=== PATIENT | female | born 1955 | race Caucasian/White ===

== ENCOUNTER 2023-10-29 11:30 | Emergency (ER) | payer MEDICARE, SELFPAY ==
[2023-10-29 11:32] VITALS: BP 106/85
[2023-10-29 11:56] LABS: % Basophils 0.4 % (0-2); % Eosinophils 0.2 % (0-6); % Immature Granulocytes 0.4 % (0-0.5); % Lymphocytes 13.3 % (20.5-51.1); % Monocytes 8.7 % (1.7-9.3); Absolute Basophils 0.1 10^3/uL (0-0.2); Absolute Immature Granulocytes 0.1 10^3/uL (0-0.05); Absolute Lymphocytes 2.3 10^3/uL (1.2-3.4); Absolute Monocytes 1.5 10^3/uL (0.1-0.6); Absolute Neutrophils 13.5 10^3/uL (1.4-6.5); Hematocrit 39.8 % (37.0-47.0); Hemoglobin 13.5 g/dL (12.0-16.0); Mean Corp Hgb Conc. 33.9 g/dL (33.0-37.0); Mean Corpuscular Hgb 32.1 pg (27.0-31.0); Mean Corpuscular Volume 94.8 fL (81.0-99.0); Mean Platelet Volume 8.7 fL (7.4-10.4); Nucleated Red Blood Cells % 0 %; Platelet Count 304 10^3/uL (130-400); Red Cell Dist. Width 13.7 % (11.5-14.5); White Blood Cell Count 17.5 10^3/uL (4.8-10.8)
[2023-10-29 12:10] LABS: ALT (SGPT) 22 U/L (0-35); AST (SGOT) 23 U/L (14-36); Albumin 4.2 g/dl (3.5-5.0); Alkaline Phosphatase 91 U/L (38-126); Blood Urea Nitrogen 12 mg/dl (7-17); Carbon Dioxide 25 mmol/L (22-30); Chloride 102 mmol/L (98-107); Glucose 104 mg/dl (70-99); Potassium 4.4 mmol/L (3.5-5.1); Sodium 132 mmol/L (135-145); Total Bilirubin 1.3 mg/dl (0.2-1.3); Total Protein 7.1 g/dl (6.3-8.2); eGFR > 60.00
[2023-10-29 12:14] LABS: Lactic Acid 1.1 mmol/L (0.7-2.0)
--- NOTE | 2023-10-29 13:13 | ED.GENMED ---
History of Present Illness
General
Chief Complaint: Skin Problem
Time Seen by Provider: 10/29/23 13:06
Travel History
Have you had any contact with someone who has COVID-19?: No
Do you have any symptoms of coronavirus? Fever > 100 degrees, chills, cough, shortness of breath, sore throat, loss of taste or smell, muscle aches, or headache?: No
History of Present Illness
History of Present Illness:
68-year-old female with history of hypertension and breast cancer in remission presents to the emergency department for evaluation of streaking redness from the right hand up to the right upper arm developing after being scratched by her cat 4 days
ago. The redness developed over the past 24 to 48 hours. She did have tactile fevers and chills yesterday but this resolved today without the use of antipyretics. Reports mild right hand discomfort, denies any axillary discomfort. No chest pain
or shortness of breath.
Past History
Past History
ED Past Medical History: GERD; Negative Asthma, HTN, Hypercholesterolemia or NIDDM
ED Past Surgical History: None
Social History
Tobacco: Former smoker
Alcohol: Daily (Beer)
Personal:
Living: with family
Employment: Employed
Review of Systems
Review of Systems
Allergies reviewed?: Yes
All Other Systems: ROS reviewed and negative except as documented in HPI and ROS
Phy Exam
Physical Exam
Physical Exam:
GEN: Well appearing, NAD, WDWN
HEENT: Oral mucosa moist, no scleral icterus
Cardiac: Regular rate and rhythm, no murmurs
Lung: No respiratory distress, no tachypnea
MSK: No gross deformity or injuries
Skin: Superficial wound to the dorsum of the right hand in the first and second interdigital webspace, there is a desquamated skin lesion adjacent to the scratch with lymphangitis extending into the right upper arm, no palpable axillary adenopathy
Neuro: AO x3, moves all extremities freely
Psych: Calm, cooperative
Course
Orders/Labs/Results
Orders:
Orders
10/29/23 11:43
Complete Blood Count/With Diff Urgent
Comprehensive Metabolic Panel Urgent
Lactic Acid Q4H
Comment: ON ICE, CANCEL 2ND ORDER IF FIRST LACTIC ACID LEVEL <2
Blood Culture Q30M
LUCAS Source: Blood/Venous
Specimen Description:
Comment: FROM 2 SEPARATE SITES
10/29/23 13:18
Ampicillin/Sulbactam 3 G [Unasyn] 3 gm 0.9% Sodium Chloride 100 ml [Nss] 100 ml IV NOW
10/29/23 13:26
Blood Culture Q30M
LUCAS Source: Blood/Venous
Specimen Description:
Comment: FROM 2 SEPARATE SITES
Abnormal Lab Results
10/29/23
11:43
WBC 17.5 H 10^3/uL
(4.8-10.8)
MCH 32.1 H pg
(27.0-31.0)
Abs Immat Gran (auto) 0.1 H 10^3/uL
(0-0.05)
Absolute Neuts (auto) 13.5 H 10^3/uL
(1.4-6.5)
Absolute Monos (auto) 1.5 H 10^3/uL
(0.1-0.6)
Neutrophils % 77.0 H %
(42.2-75.2)
Lymphocytes % 13.3 L %
(20.5-51.1)
Sodium 132 L mmol/L
(135-145)
Glucose 104 H mg/dl
(70-99)
10/29/23 11:43
10/29/23 11:43
Vital Signs
Initial and Last Documented VS:
Initial Vital Signs
Temp Pulse Resp BP Pulse Ox
98.6 F 97 16 106/85 98
10/29/23 11:32 10/29/23 11:32 10/29/23 11:32 10/29/23 11:32 10/29/23 11:32
Last Documented Vital Signs
Temp Pulse Resp BP Pulse Ox
98.6 F 87 18 135/82 96
10/29/23 11:32 10/29/23 14:49 10/29/23 14:49 10/29/23 14:49 10/29/23 14:49
MDM/Problems Addressed
MDM/Problems Addressed:
Patient does have significant lymphangitis however appears clinically well with no local sign of abscess to the hand. She does have leukocytosis but no fever. I discussed the options with the patient to include admission for IV antibiotics versus
discharge home with close return precautions, through shared decision making we opted for discharge home on oral Augmentin. Strict ED return parameters reviewed with the patient. No indication for imaging of the hand as I do not suspect abscess
*Critical Care Note
Total Time (30-74mins, 75-104mins- exclusive of procedures): Not Applicable
ED Attending Note
-
Portions of this chart may have been created with voice recognition software.� Occasional wrong word or��sound alike� substitutions may have occurred due to the inherent limitations of voice recognition software.
Discharge Plan
Departure
Patient Disposition: Home (Routine Discharge)
Date of Disposition: 10/29/23
Time of Disposition: 14:37
Patient with high blood pressure during this ER visit?: No
Discharge Problem:
Lymphangitis, Cat scratch
Instructions: Cellulitis (Skin Infection), Adult (DC)
Prescriptions:
New
amoxicillin-pot clavulanate 875-125 mg tablet
1 tab PO BID 7 Days Qty: 14 0RF
No Action
omeprazole 20 MG capsule,delayed release(DR/EC)
20 mg PO DAILY
escitalopram oxalate 10 MG tablet
10 mg PO DAILY
atorvastatin [Lipitor] 20 mg Tablet
20 mg PO QPM
calcium carbonate [Calcium 500] 500 mg calcium (1,250 mg) Tablet
500 mg PO DAILY
losartan 25 mg Tablet
25 mg PO DAILY
cholecalciferol (vitamin D3) [Vitamin D3] 25 mcg (1,000 unit) Capsule
25 mcg PO DAILY
Referrals:
UNKNOWN - PT DOES,NOT KNOW [Unknown Provider] -
Activity Restrictions/Additional Instructions:
If your symptoms or not improving within the next 48 hours or if you develop a fever at any point please return to the emergency department
Interventions
Interventions:
*Risk Screen - Suicide Last Done: 10/29/23 11:32
*General Assessment Last Done: 10/29/23 11:32
*Neglect/Abuse Screening Last Done: 10/29/23 11:32
ED- Fall Risk Assessment Last Done: 10/29/23 13:28
*ED COVID-19 Vaccine History Last Done: 10/29/23 13:28
*Nursing Disposition Last Done: 10/29/23 14:49
ED-Skin Assessment Last Done: 10/29/23 13:57
Discharge Date and Time
Discharge Date/Time: 10/29/23 14:51
[2023-10-29 13:28] VITALS: BMI 34.4
[2023-10-29] MEDS: UNASYN IV (13:41)
[2023-10-29 14:49] VITALS: BP 135/82
== END 2023-10-29 14:51 | disposition home or self-care (01) ==
LOC: EMR 11:30
PROVIDERS: Student in an Organized Health Care Education/Training Program; EMERGENCY PHYSICIAN Emergency Medicine; FAMILY PHYSICIAN Internal Medicine
DX: S60.511A Abrasion of right hand, initial encounter (principal); W55.03XA Scratched by cat, initial encounter; K21.9 Gastro-esophageal reflux disease without esophagitis; I89.1 Lymphangitis; Z85.3 Personal history of malignant neoplasm of breast; Z87.891 Personal history of nicotine dependence
CPT/HCPCS: 99283; 96365; 80053; 83605; 85025; 87040

== ENCOUNTER → 2023-11-06 09:28 | Outpatient (REF) | payer MEDICARE, SELFPAY | LOC: HWRAD 09:28 | PROVIDERS: ATTENDING PHYSICIAN Internal Medicine | DX: M81.0 Age-related osteoporosis without current pathological fracture (principal) | CPT/HCPCS: 77080 ==

== ENCOUNTER → 2023-12-18 06:18 | Day surgery (SDC) | payer MEDICARE, SELFPAY | LOC: GI 06:18 | PROVIDERS: ATTENDING PHYSICIAN Internal Medicine | DX: Z12.11 Encounter for screening for malignant neoplasm of colon (principal); D12.2 Benign neoplasm of ascending colon; K63.89 Other specified diseases of intestine; K57.30 Diverticulosis of large intestine without perforation or abscess without bleeding; K64.9 Unspecified hemorrhoids; Z86.010 Personal history of colon polyps; Z98.890 Other specified postprocedural states | CPT/HCPCS: 45385; 45380; 88305 ==

== ENCOUNTER → 2024-01-03 06:36 | Outpatient (REF) | payer MEDICARE, SELFPAY ==
[2024-01-03 10:18] LABS: ALT (SGPT) 27 U/L (0-35); AST (SGOT) 29 U/L (14-36); Albumin 4.1 g/dl (3.5-5.0); Alkaline Phosphatase 77 U/L (38-126); Blood Urea Nitrogen 13 mg/dl (7-17); Calcium 9.4 mg/dl (8.4-10.2); Carbon Dioxide 25 mmol/L (22-30); Chloride 104 mmol/L (98-107); Direct Bilirubin 0.3 mg/dl (0.0-0.4); Glucose 97 mg/dl (70-99); HDL Cholesterol 62 mg/dl; LDL Cholesterol, Calculated 125 mg/dl; Potassium 4.3 mmol/L (3.5-5.1); Sodium 134 mmol/L (135-145); Total Bilirubin 0.7 mg/dl (0.2-1.3); Total Cholesterol 210 mg/dl (50-199); Total Protein 6.9 g/dl (6.3-8.2); Triglyceride 118 mg/dl (10-149); Very Low Density Lipoprotein 23 mg/dl (0-30); eGFR > 60.00
[2024-01-03 10:46] LABS: % Basophils 1.6 % (0-2); % Eosinophils 5.1 % (0-6); % Immature Granulocytes 0.5 % (0-0.5); % Lymphocytes 26.9 % (20.5-51.1); % Monocytes 9.7 % (1.7-9.3); % Neutrophils 56.2 % (42.2-75.2); Absolute Basophils 0.1 10^3/uL (0-0.2); Absolute Eosinophils 0.4 10^3/uL (0-0.7); Absolute Lymphocytes 2.2 10^3/uL (1.2-3.4); Absolute Monocytes 0.8 10^3/uL (0.1-0.6); Absolute Neutrophils 4.6 10^3/uL (1.4-6.5); Hematocrit 40.3 % (37.0-47.0); Hemoglobin 13.7 g/dL (12.0-16.0); Mean Corpuscular Hgb 31.7 pg (27.0-31.0); Mean Corpuscular Volume 93.3 fL (81.0-99.0); Mean Platelet Volume 8.7 fL (7.4-10.4); Nucleated Red Blood Cells % 0 %; Platelet Count 318 10^3/uL (130-400); Red Blood Cell Count 4.32 10^6/uL (4.20-5.40); Red Cell Dist. Width 13.8 % (11.5-14.5); White Blood Cell Count 8.3 10^3/uL (4.8-10.8)
[2024-01-03 11:47] LABS: Glycohemoglobin (HgbA1c) 5.5 % (4.0-5.6)
== END ==
LOC: HWLAB 06:36
PROVIDERS: ATTENDING PHYSICIAN Internal Medicine Hematology & Oncology; FAMILY PHYSICIAN Internal Medicine
DX: E78.5 Hyperlipidemia, unspecified (principal); R73.01 Impaired fasting glucose; C50.111 Malignant neoplasm of central portion of right female breast
CPT/HCPCS: 36415; 80053; 80061; 82248; 83036; 85025

== ENCOUNTER → 2024-02-29 08:24 | Outpatient (REF) | payer MEDICARE, SELFPAY | LOC: HWRAD 08:24 | PROVIDERS: ATTENDING PHYSICIAN Internal Medicine | DX: M25.552 Pain in left hip (principal) | CPT/HCPCS: 73502 ==

== ENCOUNTER → 2024-04-02 09:20 | Outpatient (REF) | payer MEDICARE, SELFPAY | LOC: HWRAD 09:20 | PROVIDERS: ATTENDING PHYSICIAN Internal Medicine | DX: M54.16 Radiculopathy, lumbar region (principal); Z85.3 Personal history of malignant neoplasm of breast | CPT/HCPCS: 72110 ==

== ENCOUNTER → 2024-04-08 08:49 | Outpatient (REF) | payer MEDICARE, SELFPAY | LOC: WDC 08:49 | PROVIDERS: ATTENDING PHYSICIAN Internal Medicine Hematology & Oncology; FAMILY PHYSICIAN Internal Medicine | DX: Z12.31 Encounter for screening mammogram for malignant neoplasm of breast (principal); Z85.3 Personal history of malignant neoplasm of breast; C50.111 Malignant neoplasm of central portion of right female breast | CPT/HCPCS: 77063; 77067 ==

== ENCOUNTER → 2024-05-05 06:37 | Outpatient (REF) | payer MEDICARE, SELFPAY | LOC: MRI 3T 06:37 | PROVIDERS: ATTENDING PHYSICIAN Internal Medicine | DX: M54.16 Radiculopathy, lumbar region (principal); Z85.3 Personal history of malignant neoplasm of breast | CPT/HCPCS: 72148 ==

== ENCOUNTER 2024-09-18 01:52 | Observation (INO) | payer MEDICARE, SELFPAY ==
[2024-09-17 21:01] VITALS: BP 143/67; BMI 33.9
[2024-09-17 21:29] LABS: % Basophils 0.8 % (0-2); % Eosinophils 2.9 % (0-6); % Immature Granulocytes 0.6 % (0-0.5); % Lymphocytes 19.3 % (20.5-51.1); % Monocytes 9.6 % (1.7-9.3); % Neutrophils 66.8 % (42.2-75.2); Absolute Basophils 0.1 10^3/uL (0-0.2); Absolute Eosinophils 0.3 10^3/uL (0-0.7); Absolute Immature Granulocytes 0.1 10^3/uL (0-0.05); Absolute Lymphocytes 1.7 10^3/uL (1.2-3.4); Absolute Monocytes 0.8 10^3/uL (0.1-0.6); Absolute Neutrophils 5.8 10^3/uL (1.4-6.5); Hematocrit 35.1 % (37.0-47.0); Hemoglobin 11.8 g/dL (12.0-16.0); Mean Corp Hgb Conc. 33.6 g/dL (33.0-37.0); Mean Corpuscular Hgb 31.7 pg (27.0-31.0); Mean Corpuscular Volume 94.4 fL (81.0-99.0); Mean Platelet Volume 9.1 fL (7.4-10.4); Nucleated Red Blood Cells % 0 %; Platelet Count 243 10^3/uL (130-400); Red Blood Cell Count 3.72 10^6/uL (4.20-5.40); Red Cell Dist. Width 14.6 % (11.5-14.5); White Blood Cell Count 8.7 10^3/uL (4.8-10.8)
[2024-09-17 21:42] LABS: ALT (SGPT) 27 U/L (0-35); AST (SGOT) 32 U/L (14-36); Alkaline Phosphatase 61 U/L (38-126); Blood Urea Nitrogen 14 mg/dl (7-17); Calcium 8.9 mg/dl (8.4-10.2); Carbon Dioxide 25 mmol/L (22-30); Chloride 100 mmol/L (98-107); Estimated Creatinine Clearance 53 ml/min; Glucose 133 mg/dl (70-99); Sodium 133 mmol/L (135-145); Total Bilirubin 0.3 mg/dl (0.2-1.3); Total Protein 6.4 g/dl (6.3-8.2); eGFR > 60.00
[2024-09-17 22:00] VITALS: BP 143/64
--- NOTE | 2024-09-17 22:32 | ED.GENMED ---
History of Present Illness
<Ivis Infante HOSPICE SUPERINTENDENT - Last Filed: 09/18/24 01:40>
General
Chief Complaint: Fainting/Passed Out
Source: patient and spouse
Exam Limitations: none
Time Seen by Provider: 09/17/24 21:47
Nursing documentation reviewed up to this point in time: agreed with
History of Present Illness
History of Present Illness:
68-year-old female with history of HTN, GERD, remote history of breast cancer with lumpectomy, clear for past 7 years, states 'apparently I blacked out.' at bedside states she and the family were sitting around the table, patient states
they were laughing and joking and the next thing she knows everybody was around her trying to get her to respond. states around 8 PM while they were all sitting around the table patient suddenly slumped with eyes closed, family held her up
and got cold towels, he states she was out for a minute or 2 and they called 911. By the time 911 got there after the first minute or so patient states 'I was fine then.' She states since then she is felt fine, with now 'a little headache,' denies
change in vision, denies numbness or tingling or weakness in her extremities.
Patient states she had no warning symptoms of passing out, no pain, no palpitations, no chest pain, no dizziness or headache. No seizure activity noted, states 'her lips got like bluish.' Pt states 'I devan felt myself cme to but then
everything went black again.'
Past History
<Ivis Infante, HOSPICE SUPERINTENDENT - Last Filed: 09/18/24 01:40>
Past History
ED Past Medical History: Cancer (Breast cancer with lumpectomy has been clear for 7 years) and GERD; Negative Asthma, HTN, Hypercholesterolemia or NIDDM
ED Past Surgical History: None
Social History
Tobacco: Former smoker
Alcohol: Daily (Beer)
Personal:
Living: with family
Employment: Employed
Review of Systems
<Ivis Infante, HOSPICE SUPERINTENDENT - Last Filed: 09/18/24 01:40>
Review of Systems
Allergies reviewed?: Yes
All Other Systems: ROS reviewed and negative except as documented in HPI and ROS
Constitutional: Denies fever, fatigue or chills
Respiratory: Denies trouble breathing
Cardiac: Reports syncope; Denies chest pain, diaphoresis or palpitations
ABD/GI: Denies abdominal pain, nausea, vomiting, diarrhea, constipated or anorexia
: Denies dysuria, frequency or difficulty voiding
Musculoskeletal: Reports no symptoms
Skin: Reports no symptoms
Neurological: Reports headache (Mild); Denies dizzy, weakness or numbness
Phy Exam
<Ivis Infante, HOSPICE SUPERINTENDENT - Last Filed: 09/18/24 01:40>
Physical Exam
Physical Exam:
GENERAL: No acute distress. A&Ox3.
CONSTITUTIONAL: Afebrile.
EYES: PERRL, conjunctivae normal
Neck: Supple
ENMT: moist mucus membranes, Pharynx nl, TMs normal
RESPIRATORY: Regular respirations, nonlabored, lungs clear.
CARDIOVASCULAR: Regular rate and rhythm, no murmurs, no rubs.
GI: Soft, nontender, normal BS
MUSCULOSKELETAL: Moves with ease. Well perfused.
SKIN: Warm, dry, pink
PSYCH: Normal mood and affect. Well kept, interactive and appropriate
NEUROLOGIC: Awake, alert and oriented. Speech clear. Strength equal throughout. Cranial nerves II through XII intact. No focal neurological deficits
Course
<Ivis Infante, HOSPICE SUPERINTENDENT - Last Filed: 09/18/24 01:40>
Orders/Labs/Results
Orders:
Orders
09/17/24 21:03
EKG [Electrocardiogram (*1)] Urgent
Reason for Study: Tachycardia
09/17/24 21:04
EKG- Treatment ONCE
09/17/24 21:22
Complete Blood Count/With Diff Urgent
Comprehensive Metabolic Panel Urgent
09/17/24 22:32
CT Head W/o Iv Contrast Urgent
Comment:
Reason For Exam: syncopal episode
Troponin I Urgent
09/17/24 22:52
Orthostatic VS- Treatment ONCE
Abnormal Lab Results
09/17/24
21:22
RBC 3.72 L 10^6/uL
(4.20-5.40)
Hgb 11.8 L g/dL
(12.0-16.0)
Hct 35.1 L %
(37.0-47.0)
MCH 31.7 H pg
(27.0-31.0)
RDW 14.6 H %
(11.5-14.5)
Abs Immat Gran (auto) 0.1 H 10^3/uL
(0-0.05)
Absolute Monos (auto) 0.8 H 10^3/uL
(0.1-0.6)
Immature Gran % 0.6 H %
(0-0.5)
Lymphocytes % 19.3 L %
(20.5-51.1)
Monocytes % 9.6 H %
(1.7-9.3)
Sodium 133 L mmol/L
(135-145)
Glucose 133 H mg/dl
(70-99)
09/17/24 21:22
09/17/24 21:22
Vital Signs
Initial and Last Documented VS:
Initial Vital Signs
Temp Pulse Resp BP Pulse Ox
98.5 F 90 15 143/67 98
09/17/24 21:01 09/17/24 21:01 09/17/24 21:01 09/17/24 21:01 09/17/24 21:01
Last Documented Vital Signs
Temp Pulse Resp BP Pulse Ox
98.5 F 95 19 130/73 95
09/17/24 21:01 09/18/24 01:09 09/18/24 01:09 09/18/24 00:00 09/18/24 01:09
Shell Mold Bonder consulted with Physician
Shell Mold Bonder consulted with physician?: Yes
Name of Physician Consulted: Fabiano
<Grecia Mario, DO - Last Filed: 09/17/24 23:12>
Orders/Labs/Results
Orders:
Orders
09/17/24 21:03
EKG [Electrocardiogram (*1)] Urgent
Reason for Study: Tachycardia
09/17/24 21:04
EKG- Treatment ONCE
09/17/24 21:22
Complete Blood Count/With Diff Urgent
Comprehensive Metabolic Panel Urgent
09/17/24 22:32
CT Head W/o Iv Contrast Urgent
Comment:
Reason For Exam: syncopal episode
Troponin I Urgent
09/17/24 22:52
Orthostatic VS- Treatment ONCE
Abnormal Lab Results
09/17/24
21:22
RBC 3.72 L 10^6/uL
(4.20-5.40)
Hgb 11.8 L g/dL
(12.0-16.0)
Hct 35.1 L %
(37.0-47.0)
MCH 31.7 H pg
(27.0-31.0)
RDW 14.6 H %
(11.5-14.5)
Abs Immat Gran (auto) 0.1 H 10^3/uL
(0-0.05)
Absolute Monos (auto) 0.8 H 10^3/uL
(0.1-0.6)
Immature Gran % 0.6 H %
(0-0.5)
Lymphocytes % 19.3 L %
(20.5-51.1)
Monocytes % 9.6 H %
(1.7-9.3)
Sodium 133 L mmol/L
(135-145)
Glucose 133 H mg/dl
(70-99)
09/17/24 21:22
09/17/24 21:22
Vital Signs
Initial and Last Documented VS:
Initial Vital Signs
Temp Pulse Resp BP Pulse Ox
98.5 F 90 15 143/67 98
09/17/24 21:01 09/17/24 21:01 09/17/24 21:01 09/17/24 21:01 09/17/24 21:01
Last Documented Vital Signs
Temp Pulse Resp BP Pulse Ox
98.5 F 95 19 130/73 95
09/17/24 21:01 09/18/24 01:09 09/18/24 01:09 09/18/24 00:00 09/18/24 01:09
<Ivis Infante, HOSPICE SUPERINTENDENT - Last Filed: 09/18/24 01:40>
MDM/Problems Addressed
Differential Diagnosis Includes:
Vasovagal, seizure, cardiac dysrhythmia
MDM/Problems Addressed:
68-year-old female with history of HTN, GERD, remote history of breast cancer with lumpectomy, clear for past 7 years, states 'apparently I blacked out.' at bedside states she and the family were sitting around the table, patient states
they were laughing and joking and the next thing she knows everybody was around her trying to get her to respond. states around 8 PM while they were all sitting around the table patient suddenly slumped with eyes closed, family held her up
and got cold towels, he states she was out for a minute or 2 and they called 911. By the time 911 got there after the first minute or so patient states 'I was fine then.' She states since then she is felt fine, with now 'a little headache,' denies
change in vision, denies numbness or tingling or weakness in her extremities.
Patient states she had no warning symptoms of passing out, no pain, no palpitations, no chest pain, no dizziness or headache. No seizure activity noted, states 'her lips got like bluish.'
Pt states 'I devan felt myself cme to but then everything went black again.'
CBC, CMP with no clinically significant abnormality
EKG NSR
Troponin:WNL
Plan: Admit, secured entrance monitor
Case discussed with Dr. Mario who examined patient and agrees with plan
Hospitalist notified of admission
Head CT shows nothing acute
<Ivis Infante, HOSPICE SUPERINTENDENT - Last Filed: 09/18/24 01:40>
*Critical Care Note
Total Time (30-74mins, 75-104mins- exclusive of procedures): Not Applicable
ED Attending Note
<Ivis Infante, HOSPICE SUPERINTENDENT - Last Filed: 09/18/24 01:40>
-
Portions of this chart may have been created with voice recognition software.� Occasional wrong word or��sound alike� substitutions may have occurred due to the inherent limitations of voice recognition software.
<Grecia Mario, - Last Filed: 09/17/24 23:12>
ED Attending Note
Patient seen and examined by attending physician: Yes
I performed a history and physical exam of patient and discussed management with resident, I reviewed resident's note and agree with documented findings and plan of care.: Yes
ED Attending Note:
68-year-old woman with history of hypertension, hyperlipidemia suffered syncopal event with no prodromal symptoms. Witnessed by family.
Concern for syncope versus seizure. Concern for tachy-arrhythmia. It is concerning that she had no prodromal symptoms.
No history of similar episodes in the past.
Thus far labs are unremarkable. EKG is unremarkable.
Patient is bright and alert, pleasant, oriented x 3, No focal neurodeficits.
Will check troponin, CT of the head, orthostatic vital signs.
Will continue secured entrance monitor.
Due to concern for recurrent episodes, no definitive cause for syncope, significant concern for recurrence thus will hospitalize for observation, continue secured entrance monitor and close observation.
Discharge Plan
Departure
Patient Disposition: Admit
Date of Disposition: 09/17/24
Time of Disposition: 23:51
Admit to: Telemetry
Presentation/result/management discussed w/ accepting MD/DO: Hospitalist
Condition: Good
Discharge Problem:
Episode of syncope
Prescriptions:
No Action
omeprazole 20 MG capsule,delayed release(DR/EC)
20 mg PO DAILY
escitalopram oxalate 10 MG tablet
10 mg PO DAILY
atorvastatin [Lipitor] 20 mg Tablet
20 mg PO DAILY
calcium carbonate [Calcium 500] 500 mg calcium (1,250 mg) Tablet
500 mg PO DAILY
losartan 25 mg Tablet
25 mg PO DAILY
cholecalciferol (vitamin D3) [Vitamin D3] 25 mcg (1,000 unit) Capsule
25 mcg PO DAILY
Referrals:
Kimmy Bateman MD [Family Provider] -
Interventions
Interventions:
*Risk Screen - Suicide Last Done: 09/17/24 21:01
*General Assessment Last Done: 09/17/24 21:01
*Neglect/Abuse Screening Last Done: 09/17/24 21:01
ED- Fall Risk Assessment Last Done: 09/17/24 21:01
*ED COVID-19 Vaccine History Last Done: 09/17/24 21:01
ED- Cardiac Assessment Last Done: 09/17/24 22:46
ED- Neurological Assessment Last Done: 09/17/24 22:46
Discharge Date and Time
Print Language: LUXEMBOURGER
[2024-09-17 22:52] VITALS: BP 151/75; BP 163/74; BP 165/74; PULSE 93; PULSE 96
[2024-09-17 22:58] VITALS: BP 151/75
[2024-09-17 23:00] VITALS: BP 163/74
[2024-09-17 23:06] LABS: Troponin I < 0.012 ng/ml
[2024-09-17 23:35] VITALS: BP 166/73
[2024-09-18] VITALS (8 sets, daily range): BP systolic 123–161; BP diastolic 54–79; PULSE 86–93; BMI 34.9
--- NOTE | 2024-09-18 01:39 | HPS.HSE ---
Family Physician
-
Family Physician: Kimmy Bateman
Chief Complaint
-
Syncope
History of Present Illness
Patient is a 68y F with PMH significant for breast cancer and hypertension who presents to ED for evaluation s/p syncopal episode. Patient states that she has been feeling well recently. This evening she was seated at a table 'laughing and
carrying on' at a [employer] when she abruptly lost consciousness. Patient states that she had no prodrome whatsoever of lightheadedness, dizziness, palpitations, etc. 911 was called and family / friends 'held me up' and placed cool rags on her head.
She came to by the time EMS arrived. She was not incontinent of bowel or bladder. No current complaints or concerns at all. No recent med changes. No prior history of similar events. She had 1 1/2 beers at the democrat this evening.
Medical History
Past Medical History
Past Medical History: Reports Other
Additional Past Medical History:
Hypertension
Dyslipidemia
Obesity
Breast Cancer s/p Lumpectomy, Chemo and XRT
GERD
Past Surgical History: Reports Other
Additional Past Surgical History:
Right Lumpectomy
Port Placement / Removal
x 2
Social History
Tobacco: Former Smoker (Quit many years ago.)
Alcohol: Occasional
Drug: None
Living: With Family
Family History
Family History: Not pertinent
Allergies / Home Medications
Allergies reflects when Allergies were last updated in [facility].
Home Medications with original date entered in [facility]
Allergy/Medication List:
Allergies
Allergy/AdvReac Type Severity Reaction Status Date / Time
No Known Allergies Allergy Verified 09/17/24 21:07
Home Medications
escitalopram oxalate 10 mg tablet 10 mg PO DAILY 06/12/16
omeprazole 20 mg capsule,delayed release 20 mg PO DAILY 06/12/16
atorvastatin 20 mg tablet (Lipitor) 20 mg PO DAILY 10/29/23
calcium carbonate 500 mg PO DAILY 10/29/23
cholecalciferol (vitamin D3) 25 mcg (1,000 unit) capsule (Vitamin D3) 25 mcg PO DAILY 10/29/23
losartan 25 mg tablet 25 mg PO DAILY 10/29/23
Review of Systems
-
History Source: Patient
A 12 point ROS was completed and negative except as noted: Yes
Constitutional: Denies Fever or Chills
Respiratory: Denies Cough or Trouble Breathing
Cardiac: Reports Syncope; Denies Chest Pain or Palpitations
Abdomen/GI: Denies Abdominal Pain, Nausea, Vomiting or Diarrhea
: Denies Dysuria or Frequency
Musculoskeletal: Denies Joint Pain or Edema
Neurological: Denies Dizzy or Headache
Physical Exam
Vital Signs
Vital Signs
Temp Pulse Resp BP Pulse Ox
98.5 F 95 19 130/73 95
09/17/24 21:01 09/18/24 01:09 09/18/24 01:09 09/18/24 00:00 09/18/24 01:09
Physical Exam
General: Other (68y F in no acute distress.)
HEENT: Moist mucous membranes, PERRLA and Other (No bruits.)
Respiratory: Clear; No Wheezes, Rales or Rhonchi
Cardiac: S1/S2 and Regular Rhythm; No Murmur
GI: Soft, Non Tender, Non Distended and Normal Bowel Sounds
Musculoskeletal: No Clubbing, No Cyanosis and No Edema
Neuro: AO x 3 and Nonfocal/grossly intact
Laboratory Results
-
09/17/24 21:22
09/17/24 21:22
Laboratory Results
Total Bilirubin 0.3 mg/dl (0.2-1.3) 09/17/24 21:22
AST 32 U/L (14-36) 09/17/24 21:22
ALT 27 U/L (0-35) 09/17/24 21:22
Alkaline Phosphatase 61 U/L (38-126) 09/17/24 21:22
Troponin I < 0.012 ng/ml 09/17/24 22:32
Impression/Plan
-
A/P: Patient is a 68y F with PMH significant for HTN who presents to ED for evaluation s/p syncopal episode at home.
Syncope
- Observe overnight for further evaluation.
- Suspect vasovagal syncope with combination of alcohol and intra-abdominal pressure / laughing, etc.
- No suspicious prodrome / other symptoms.
- Currently asymptomatic.
- Monitor overnight for any significant arrhythmia.
- Prob discharge in the AM if remains asymptomatic.
Benign Hypertension
- Stable. Continue current med regimen with holding parameters.
- Check orthostatic BPs.
GERD
- Stable. Continue PPI.
DVT prophylaxis: SCDs
Code Status: Full
--- NOTE | 2024-09-18 03:30 | PTCARENOTE ---
Received patient from ED via stretcher. Patient ambulated from stretcher to bed independently. Patient denies pain and dizziness. Oriented patient to room and placed call coy within reach.
--- NOTE | 2024-09-18 07:29 | W.PN.HOSP.TC ---
Addendum entered and electronically signed by Sea Marsh MD 09/18/24 22:42:
Attending Addendum:
I saw and evaluated the patient. I reviewed the resident�s note and agree with findings and plan as documented in the resident�s note. Sub: feels great. No further syncopal episodes. Denies dizziness CP palps neuro sxs. Full 12 point ROS reviewed
and negative except as documented Exam: Vitals reviewed in chart GEN-
#Syncope
- vasovagal- no signs of cardio/neuro etiology
- No suspicious prodrome / other symptoms.
- Currently asymptomatic. EKG reviewed and wnl
- DC home with close follow up with PCP
#Benign Hypertension
- Stable. Continue current med regimen with holding parameters.
- orthostatic BPs. neg
#GERD
- Stable. Continue omeprazole
#Breast ca- f/u as OP
#Depression- cont lexapro
DVT prophylaxis: SCDs
Code Status: Full
Time spent coordinating care, DC planning, review of DC plan of care with resident, transition of care, review of records, med rec/scripts sent electronically, consults, notes, d/w consultants, nursing, family/, and CM� 88 mins
Original Note:
Today's Communication/Plan
-
.
Assessment / Plan
Assessment / Plan
Ms. Preeti Dewitt is a 68yoF pmh HTN, GERD, hx breast cancer admitted for a syncopal episode.
Syncope
- Suspect vasovagal syncope with combination of alcohol and intra-abdominal pressure / laughing, etc.
- No suspicious prodrome / other symptoms.
- Currently asymptomatic.
- CT head: no acute intracranial abnormalities
- Orthostatic vitals - negative
Benign Hypertension
- cont losartan
GERD
- cont ppi
Obesity due to excess calories
Diet:
DVT prophylaxis: SCDs
Code Status: FULL CODE
Anticipated Discharge: Today
Subjective/Interval History
-
Date of Service: September 18, 2024
Ms. Preeti Dewitt is a 68yoF pmh HTN, GERD, hx breast cancer admitted for a syncopal episode. Family witnessed LOC - pt sitting at a table and slumped over. No falls, no injury to head. No warning sx of passing out. Pt remains asymptomatic today.
Objective Data
-
Labs:
Laboratory Results
09/17/24 09/18/24
21:22 06:51
WBC 8.7 Pending
Hgb 11.8 L Pending
Hct 35.1 L Pending
Plt Count 243 Pending
Sodium 133 L Pending
Potassium 4.0 Pending
Chloride 100 Pending
Carbon Dioxide 25 Pending
BUN 14 Pending
Creatinine 1.0 Pending
Glucose 133 H Pending
Calcium 8.9 Pending
Total Bilirubin 0.3
AST 32
ALT 27
Alkaline Phosphatase 61
Vital Signs:
Vital Signs
Temp Pulse Resp BP Pulse Ox
97.7 F 94 18 123/79 98
09/18/24 03:36 09/18/24 03:36 09/18/24 03:36 09/18/24 03:36 09/18/24 03:36
Review of Systems
-
History Source: Patient
Constitutional: Reports No Symptoms
EENT: Reports No Symptoms Reported
Respiratory: Reports No Symptoms
Cardiac: Reports No Symptoms
Abdomen/GI: Reports No Symptoms
Genitourinary: Reports No Symptoms
Musculoskeletal: Reports No Symptoms
Skin: Reports No Symptoms
Neuro: Reports No Symptoms
Endocrine: Reports No Symptoms
Hematologic / Lymphatic: Reports No Symptoms
Allergy / Immunology: Reports No Symptoms
Physical Exam
-
General: Well Developed and Well Nourished
[2024-09-18 08:23] LABS: Hematocrit 37.2 % (37.0-47.0); Hemoglobin 12.5 g/dL (12.0-16.0); Mean Corp Hgb Conc. 33.6 g/dL (33.0-37.0); Mean Corpuscular Volume 95.1 fL (81.0-99.0); Mean Platelet Volume 9.3 fL (7.4-10.4); Platelet Count 259 10^3/uL (130-400); Red Blood Cell Count 3.91 10^6/uL (4.20-5.40); Red Cell Dist. Width 14.7 % (11.5-14.5); White Blood Cell Count 9.1 10^3/uL (4.8-10.8)
[2024-09-18] MEDS: PROTONIX 40 MG PO (08:33)
[2024-09-18] MEDS: COZAAR 25 MG PO (08:34)
[2024-09-18] MEDS: LIPITOR 20 MG PO (08:34)
[2024-09-18] MEDS: LEXAPRO 10 MG PO (08:34)
[2024-09-18 08:46] LABS: Blood Urea Nitrogen 14 mg/dl (7-17); Calcium 9.1 mg/dl (8.4-10.2); Carbon Dioxide 27 mmol/L (22-30); Chloride 103 mmol/L (98-107); Estimated Creatinine Clearance 67 ml/min; Glucose 100 mg/dl (70-99); Potassium 4.2 mmol/L (3.5-5.1); Sodium 135 mmol/L (135-145); eGFR > 60.00
--- NOTE | 2024-09-18 09:06 | W.DCSUMMARY ---
Addendum entered and electronically signed by Sea Marsh MD 09/18/24 22:43:
Read, reviewed, and agree. See same day progress note for additional details. Patient stable for DC d/w . no arrhythmias on tele. F/u PCP set up.
Schuyler Marhs MD
Original Note:
Documented by User: Fatemeh Kaur DO, Resident 09/18/24 14:20
Discharge Summary
Discharge Data
Date of Admission: 09/18/24
Date of Discharge: 09/18/24
-
Pending Results: No
Hospital Course
Discharging Physician : Dr. Fatemeh Kaur, Dr. Schuyler Marsh
Disposition : home
Primary care physician : Kimmy Bateman
Principal Discharge diagnosis : Vasovagal syncope
Chronic Discharge diagnosis : HTN, GERD, hx breast cancer
Hospital Course : Arrived to the ED 09/17 via EMS for a syncopal episode. No prodrome or warning symptoms for the syncopal episode. Was laughing and joking with family when she slumped over. No fall, did not hit her head. ECG NSR in ED and the next
day. Normal cardiopulmonary exam. No acute intracranial abnormalities on head CT. Ruled out cardiogenic causes of syncope, so presume it was vasovagal syncope.
Important imaging findings : CT head: no acute intracranial abnormalities
Procedure findings : n/a
Discharge Plan
-
Patient Disposition: Home (Routine Discharge)
Discharge Diagnosis/Procedures: Syncope, HTN, GERD
Condition: Good
Diet: As tolerated
Activity: As tolerated
Driving Restrictions: As prior to admission
Bathing Restrictions: None
Instructions: Vasovagal Response (DC), Syncope (fainting) - Discharge instructions
Referrals:
Kimmy Bateman MD [Family Provider] - in one week
Prescriptions:
Continued
omeprazole 20 MG capsule,delayed release(DR/EC)
20 mg PO DAILY
escitalopram oxalate 10 MG tablet
10 mg PO DAILY
atorvastatin [Lipitor] 20 mg Tablet
20 mg PO DAILY
calcium carbonate 500 mg calcium (1,250 mg) Tablet
500 mg PO DAILY
losartan 25 mg Tablet
25 mg PO DAILY
cholecalciferol (vitamin D3) [Vitamin D3] 25 mcg (1,000 unit) Capsule
25 mcg PO DAILY
Discharge Orders:
Discharge Patient (As Directed); Ordered 09/18/24
Ordered By: Fatemeh Kaur
Discharge Date and Time
Discharge Date/Time: 09/18/24 13:24
Print Language: UPPER SORBIAN

Documented by User: Sea Marsh MD 09/18/24 22:38
Discharge Summary
Discharge Data
Date of Admission: 09/18/24
Date of Discharge: 09/18/24
Discharge Plan
-
Patient Disposition: Home (Routine Discharge)
Discharge Diagnosis/Procedures: Syncope, HTN, GERD
Condition: Good
Diet: As tolerated
Activity: As tolerated
Driving Restrictions: As prior to admission
Bathing Restrictions: None
Instructions: Vasovagal Response (DC), Syncope (fainting) - Discharge instructions
Referrals:
Kimmy Bateman MD [Family Provider] - in one week
Prescriptions:
Continued
omeprazole 20 MG capsule,delayed release(DR/EC)
20 mg PO DAILY
escitalopram oxalate 10 MG tablet
10 mg PO DAILY
atorvastatin [Lipitor] 20 mg Tablet
20 mg PO DAILY
calcium carbonate 500 mg calcium (1,250 mg) Tablet
500 mg PO DAILY
losartan 25 mg Tablet
25 mg PO DAILY
cholecalciferol (vitamin D3) [Vitamin D3] 25 mcg (1,000 unit) Capsule
25 mcg PO DAILY
Discharge Orders:
Discharge Patient (As Directed); Ordered 09/18/24
Ordered By: Fatemeh Kaur
Discharge Date and Time
Discharge Date/Time: 09/18/24 13:24
Print Language: UPPER SORBIAN
[2024-09-18 09:09] LABS: TSH Reflex To Free T4 2.51 uIU/ml (0.47-4.68)
--- NOTE | 2024-09-18 12:19 | CM ---
CM met with Preeti and her to complete [place]. Preeti was having her annual [employer] green party in her home with her nieces; her sister surprised her by flying in from [place]. During the get together Preeti had a sudden loss of consciousness;
she had no warning signs, denies hitting her head. Family called the ambulance squad; by the time they arrived Preeti felt 'back to normal', but came to the ED for evaluation due to the sudden LOC.
Preeti and her live at [facility] in a 1 floor home with 1 entry step. They are both (I) amb and adls; drive locally. No services in the home.
Plan: Discharge to home with no identified needs.
PCP: Kimmy Bateman
Pharm: [facility] in [place]
== END 2024-09-18 13:24 | disposition home or self-care (01) ==
LOC: 4 EAST ACU 01:52
PROVIDERS: Registered Nurse; Student in an Organized Health Care Education/Training Program; ADMITTING PHYSICIAN Hospitalist; ATTENDING PHYSICIAN Family Medicine; EMERGENCY PHYSICIAN Emergency Medicine; FAMILY PHYSICIAN Internal Medicine
DX: R55 Syncope and collapse (principal); I10 Essential (primary) hypertension; K21.9 Gastro-esophageal reflux disease without esophagitis; R51.9 Headache, unspecified; E66.09 Other obesity due to excess calories; E78.5 Hyperlipidemia, unspecified; I49.8 Other specified cardiac arrhythmias; F32.A Depression, unspecified; Z85.3 Personal history of malignant neoplasm of breast; Z87.891 Personal history of nicotine dependence; Z68.34 Body mass index [BMI] 34.0-34.9, adult
CPT/HCPCS: 70450; 80048; 80053; 84443; 84484; 85025; 85027; 93005; 99285; G0378

== ENCOUNTER → 2024-10-13 06:49 | Outpatient (REF) | payer MEDICARE, SELFPAY | LOC: RCS 06:49 | PROVIDERS: ATTENDING PHYSICIAN Internal Medicine | DX: R55 Syncope and collapse (principal) | CPT/HCPCS: 93225; 93226; 93306 ==

== ENCOUNTER → 2024-10-20 09:46 | Outpatient (REF) | payer MEDICARE, SELFPAY | LOC: RAD 09:46 | PROVIDERS: ATTENDING PHYSICIAN Internal Medicine | DX: N94.89 Other specified conditions associated with female genital organs and menstrual cycle (principal); R93.89 Abnormal findings on diagnostic imaging of other specified body structures | CPT/HCPCS: 76830; 76856 ==

== ENCOUNTER → 2024-10-27 08:47 | Outpatient (REF) | payer MEDICARE, SELFPAY | LOC: RAD 08:47 | PROVIDERS: ATTENDING PHYSICIAN Internal Medicine | DX: R55 Syncope and collapse (principal) | CPT/HCPCS: 93880 ==

== ENCOUNTER → 2025-04-06 06:09 | Outpatient (REF) | payer MEDICARE, SELFPAY ==
[2025-04-06 10:13] LABS: ALT (SGPT) 18 U/L (0-35); AST (SGOT) 20 U/L (14-36); Albumin 4.1 g/dl (3.5-5.0); Alkaline Phosphatase 81 U/L (38-126); Blood Urea Nitrogen 9 mg/dl (7-17); Calcium 8.8 mg/dl (8.4-10.2); Carbon Dioxide 27 mmol/L (22-30); Chloride 103 mmol/L (98-107); Glucose 101 mg/dl (70-99); HDL Cholesterol 49 mg/dl; LDL Cholesterol, Calculated 107 mg/dl; Potassium 4.3 mmol/L (3.5-5.1); Sodium 135 mmol/L (135-145); Total Protein 6.7 g/dl (6.3-8.2); Very Low Density Lipoprotein 25 mg/dl (0-30); eGFR > 60.00
[2025-04-06 10:19] LABS: Glycohemoglobin (HgbA1c) 5.5 % (4.0-5.6)
== END ==
LOC: HWLAB 06:09
PROVIDERS: ATTENDING PHYSICIAN Internal Medicine
DX: E78.5 Hyperlipidemia, unspecified (principal); R73.01 Impaired fasting glucose
CPT/HCPCS: 36415; 80053; 80061; 83036

== ENCOUNTER → 2025-04-13 08:45 | Outpatient (REF) | payer MEDICARE, SELFPAY | LOC: WDC 08:45 | PROVIDERS: ATTENDING PHYSICIAN Internal Medicine Hematology & Oncology; FAMILY PHYSICIAN Internal Medicine | DX: Z12.31 Encounter for screening mammogram for malignant neoplasm of breast (principal) | CPT/HCPCS: 77063; 77067 ==

== ENCOUNTER → 2025-08-20 06:18 | Outpatient (REF) | payer MEDICARE, SELFPAY ==
[2025-08-20 10:53] LABS: ALT (SGPT) 20 U/L (0-35); AST (SGOT) 24 U/L (14-36); Albumin 3.9 g/dl (3.5-5.0); Alkaline Phosphatase 92 U/L (38-126); Blood Urea Nitrogen 9 mg/dl (7-17); Calcium 9.1 mg/dl (8.4-10.2); Carbon Dioxide 27 mmol/L (22-30); Chloride 107 mmol/L (98-107); Glucose 91 mg/dl (70-99); HDL Cholesterol 39 mg/dl; LDL Cholesterol, Calculated 81 mg/dl; Potassium 4.3 mmol/L (3.5-5.1); Sodium 136 mmol/L (135-145); Total Protein 6.7 g/dl (6.3-8.2); Very Low Density Lipoprotein 26 mg/dl (0-30); eGFR > 60.00
[2025-08-20 10:55] LABS: Hematocrit 29.3 % (37.0-47.0); Hemoglobin 8.7 g/dL (12.0-16.0); Mean Corp Hgb Conc. 29.7 g/dL (33.0-37.0); Mean Corpuscular Volume 94.2 fL (81.0-99.0); Nucleated Red Blood Cells % 6.3 %; Platelet Count 159 10^3/uL (130-400); Red Cell Dist. Width 21.2 % (11.5-14.5)
== END ==
LOC: HWLAB 06:18
PROVIDERS: ATTENDING PHYSICIAN Internal Medicine Hematology & Oncology; FAMILY PHYSICIAN Internal Medicine
DX: I10 Essential (primary) hypertension (principal); E78.5 Hyperlipidemia, unspecified; E66.9 Obesity, unspecified; C50.111 Malignant neoplasm of central portion of right female breast
CPT/HCPCS: 36415; 80048; 80061; 80076; 84443; 85025